=== PATIENT | female | born 1990 | race Caucasian/White ===

== ENCOUNTER 2018-09-01 17:33 | Emergency (ER) | payer OTHER, SELFPAY ==
[2018-09-01 18:04] LABS: #Basophils 0.1 thou/uL (0.0-0.2); #Eosinphils 0.1 thou/uL (0.0-0.7); #Lymphocytes 2.3 thou/uL (1.20-3.40); #Monocytes 0.7 thou/uL (0.11-0.59); #Neutrophils 8.9 thou/uL (1.40-6.50); %Basophils 0.7 % (0.0-1.0); %Lymphocytes 19.4 % (21.0-51.0); %Monocytes 5.7 % (0.0-10.0); %Neutrophils 73.3 % (42.0-75.0); Hemoglobin 13.5 g/dL (12.0-16.0); Mean Corpuscular Hemoglobin 32.1 pg (27.0-31.0); Mean Corpuscular Volume 94.4 fL (78.0-98.0); Mean Platelet Volume 7.4 fL (7.4-10.4); Platelet Count 267 thou/uL (130-400); RBC Distribution Width 11.7 % (11.5-14.5); Red Blood Cell (RBC) Count 4.22 mill/uL (4.20-5.40); White Blood Cell (WBC) Count 12.1 thou/uL (4.8-10.8)
[2018-09-01 18:30] LABS: Bilirubin Negative (Negative); Blood, Urine Negative (Negative); Clarity CLEAR (Clear); Glucose, Urine (Dipstick) Negative (Negative); Leukocyte Negative (Negative); Nitrite Negative (Negative); Protein, Urine (Dipstick) Negative (Neg-Trace); Specific Gravity, Urine 1.021 (1.002-1.036); pH, Urine 6.5 (5.0-9.0)
--- NOTE | 2018-09-01 21:06 | ULT ---
PELVIC ULTRASOUND INCLUDING TRANSABDOMINAL AND VASCULAR DUPLEX WITH COLOR AND SPECTRAL DOPPLER IMAGIN 09/01/18 HISTORY: Right sided pelvic pain for three days. There is a single viable intrauterine fetus. Right and left ovaries are visualized and appear normal. There is vascular flow documented to both ovaries. heart rate 178 beats per minute. No evidenc e for extrachorionic hemorrhage. No abscess or abnormal fluid collection. IMPRESSION: Early viable intrauterine at 9 weeks, 1 day gestation with an JHOAN of 04/05/19. heart r ate 178 beats per minute. Unremarkable ovaries. No evidence of torsion. POS: [facility]
== END 2018-09-01 20:16 | disposition home or self-care (01) ==
LOC: ERS 17:33
DX: O99.89 Other specified diseases and conditions complicating pregnancy, childbirth and the puerperium (principal); R10.9 Unspecified abdominal pain; Z3A.01 Less than 8 weeks gestation of pregnancy
CPT/HCPCS: 36415; 76856; 81003; 84702; 85025; 86900; 86901; 93976

== ENCOUNTER 2019-02-01 17:21 | Day surgery (SDC) | payer OTHER ==
[2019-02-01 18:20] VITALS: BMI 35.6
[2019-02-01 18:21] VITALS: BP 126/73; TEMP 99
[2019-02-01 18:48] LABS: #Basophils 0.1 thou/uL (0.0-0.2); #Eosinphils 0.2 thou/uL (0.0-0.7); #Lymphocytes 2.3 thou/uL (1.20-3.40); #Monocytes 0.7 thou/uL (0.11-0.59); #Neutrophils 11.2 thou/uL (1.40-6.50); %Basophils 0.5 % (0.0-1.0); %Eosinophils 1.1 % (0.0-10.0); %Lymphocytes 15.6 % (21.0-51.0); %Neutrophils 77.8 % (42.0-75.0); Hemoglobin 12.4 g/dL (12.0-16.0); Mean Corpuscular HGB CONC 34.4 g/dL (32.0-36.0); Mean Corpuscular Hemoglobin 32.8 pg (27.0-31.0); Mean Corpuscular Volume 95.3 fL (78.0-98.0); Mean Platelet Volume 7.3 fL (7.4-10.4); Platelet Count 237 thou/uL (130-400); RBC Distribution Width 11.9 % (11.5-14.5); Red Blood Cell (RBC) Count 3.79 mill/uL (4.20-5.40); White Blood Cell (WBC) Count 14.4 thou/uL (4.8-10.8)
[2019-02-01 18:58] LABS: Bilirubin Negative (Negative); Blood, Urine Negative (Negative); Clarity CLOUDY (Clear); Glucose, Urine (Dipstick) Negative (Negative); Leukocyte Negative (Negative); Nitrite Negative (Negative); Protein, Urine (Dipstick) Negative (Neg-Trace); Specific Gravity, Urine 1.021 (1.002-1.036); Urobilinogen 0.2 mg/dL (0.2-1.0)
[2019-02-01 19:07] LABS: ALT (SGPT) 18 U/L (8-55); AST (SGOT) 16 U/L (5-34); Albumin 3.8 g/dL (3.5-5.0); Alkaline Phosphatase 104 U/L (40-150); Anion Gap 14 mmol/L (10-20); BUN (Urea Nitrogen) 8 mg/dL (7.0-18.7); Bilirubin, Total 0.2 mg/dL (0.2-1.2); Calc. Creatinine Clearance 172 mL/min (70-130); Calcium 9.3 mg/dL (7.8-10.44); Carbon Dioxide 22 mmol/L (22-29); Chloride 104 mmol/L (98-107); Estimated GFR-MDRD Greater than 90; Globulin 3.2 g/dL (2.4-3.5); Glucose 92 mg/dL (70-105); Potassium 3.8 mmol/L (3.5-5.1); Sodium 136 mmol/L (136-145)
[2019-02-01 19:20] LABS: FFN Internal QC Analyzer PASS (PASS); FFN Internal QC Cassette PASS (PASS); Fetal Fibronectin Negative (Negative)
[2019-02-01] MEDS ORDERED: Butorphanol Tartrate 1 MG/ML VIAL SLOW IVP PRN (19:34)
[2019-02-01] MEDS ORDERED: Sodium Chloride 0.9% 0 ML ONE (19:42)
--- NOTE | 2019-02-02 08:14 | SS ---
DATE OF ADMISSION: 02/01/2019 DATE OF DISCHARGE: 02/01/2019 REGULAR PHYSICIAN: Lakhwinder Salomon MD. EVALUATING PHYSICIAN: Noe Rollins MD CHIEF COMPLAINT: Headache, cramping. HISTORY OF PRESENT ILLNESS: Ms. Sales is a 28-year-old white G2, P1, with an estimated date of confinement of 04/11/2019, who presents complaining of a 12-hour history of headache along with abdominal cramping. She denies change in bowel or bladder habits, vaginal bleeding, or ruptured membranes. Her care has been with Dr. Salomon without reported complications. PAST OBSTETRICAL HISTORY: One at 38 weeks for what she describes as distress. PAST MEDICAL HISTORY: Anxiety. PAST SURGICAL HISTORY: x1. CURRENT MEDICATIONS: vitamins and Zoloft 50 mg daily. ALLERGIES: PENICILLIN. SHE IS UNCERTAIN AND WAS TOLD A CHILD WHAT THE REACTION WAS. SOCIAL HISTORY: Denies tobacco, alcohol, or drug use. FAMILY HISTORY: Unremarkable. REVIEW OF SYSTEMS: Positive for headache. Denies nausea, vomiting, fever, chills, ruptured membranes, or vaginal bleeding. PHYSICAL EXAMINATION: VITAL SIGNS: Blood pressure in triage is 124/73, pulse 85. She is afebrile. GENERAL: She is lucid, answers questions appropriately. NEURO: Intact across all cranial nerves. ABDOMEN: Soft, nontender, and gravid. PELVIC: Deferred. heart rate tracing is stable. No significant uterine contractions are seen. LABORATORY DATA: White count 14.4, hemoglobin and hematocrit 12.4/36.1, platelet count 237,000. Chemistries; sodium 136, potassium 3.8, creatinine 0.7, glucose 92, total bilirubin 0.2, AST 16, ALT 18. Urinalysis shows a specific gravity 1.021 with negative protein, negative glucose, negative ketones, negative blood, negative nitrites, and negative leukocyte esterase. Her fibronectin returns negative. The patient is given 1 mg of Stadol IV and has marked improvement of her headache. ASSESSMENT: 1. Thirty week intrauterine . 2. No evidence of labor. 3. Suspect migraine headache variant. No evidence of preeclampsia at this time. PLAN: The patient has been dismissed home. The patient states that she can use Tylenol and caffeine for headaches. She states that she has a followup appointment within the week with Dr. Salomon. She was given complete precautions and was sent home. Dr. Salomon was made aware. Job ID: [id number]
== END 2019-02-01 21:30 | disposition home or self-care (01) ==
LOC: L&D/OP 17:21
PROVIDERS: ATTEND Obstetrics & Gynecology
DX: O99.89 Other specified diseases and conditions complicating pregnancy, childbirth and the puerperium (principal); R51 Headache; R10.9 Unspecified abdominal pain; O99.343 Other mental disorders complicating pregnancy, third trimester; F41.9 Anxiety disorder, unspecified; Z3A.30 30 weeks gestation of pregnancy; Z88.0 Allergy status to penicillin; Z79.899 Other long term (current) drug therapy
CPT/HCPCS: 36415; 80053; 81003; 82731; 85025; 96375; 99283; J0595

== ENCOUNTER 2019-04-05 09:57 | Inpatient (IN) | payer OTHER ==
--- NOTE | 2019-04-05 09:00 | PDOC.LDHP ---
Labor and Delivery H&P Chief complaint: scheduled section HPI: 28 y/o presents today at 39 and 1/7 weeks for repeat . Current gestational age (weeks): 39 Due date: 04/11/19 Grav: 2 Para: 1 Current complications: none, other (Dedpression, Anxiety) Abnormal US findings: No Previous surgical history: low tranverse CS Allergies/Adverse Reactions: Allergies Allergy/AdvReac Type Severity Reaction Status Date / Time penicillin G Allergy Verified 02/01/19 18:14 Social history: none - Physical Exam Vital signs reviewed and normal: yes General: NAD, resting Heart: RRR Lungs: CTAB Abdomen: gravid Extremeties: no edema FHT: category 1 - Assessment L&D Assessment: scheduled repeat section - Plan Plan: admit to L&D, to OR for section
[~2019-04-05 09:57] MED LIST: Bicitra 30 ML UDCUP PO SCH; Clindamycin/D5W 900 MG in Premix Bag 1 BAG IVPB SCH; Ondansetron PF 4 MG/2 ML Vial IVP PRN; Promethazine HCl 25 MG/ML VIAL IM PRN; Vancomycin HCl 1 GM in Premix Bag 1 BAG IVPB SCH; hydrALAZINE 20 MG/ML VIAL SLOW IVP PRN
[2019-04-05] MEDS: Lactated Ringer's 1,000 ML IV SCH ×2 (10:49→23:07)
[2019-04-05 11:01] LABS: Hemoglobin 12.7 g/dL (12.0-16.0); Mean Corpuscular Hemoglobin 31.5 pg (27.0-31.0); Mean Corpuscular Volume 92.6 fL (78.0-98.0); Mean Platelet Volume 7.9 fL (7.4-10.4); Platelet Count 214 thou/uL (130-400); RBC Distribution Width 12.7 % (11.5-14.5); Red Blood Cell (RBC) Count 4.03 mill/uL (4.20-5.40); White Blood Cell (WBC) Count 10.7 thou/uL (4.8-10.8)
[2019-04-05 11:09] VITALS: BMI 37.9
[2019-04-05 11:45] LABS: Syphilis Antibody Nonreactive (Nonreactive); Syphilis Antibody Index 0.04 S/CO (<1.00 Non-Reactive)
[2019-04-05 11:46] LABS: HBSAg Index 0.36 S/CO (0-0.99); Hep B Surf Ag Non-Reactive S/CO (NonReactive)
[2019-04-05] MEDS ORDERED: Oxytocin 10 UNITS/ML VIAL ONE ×2 (11:55→13:09)
[2019-04-05] MEDS ORDERED: MORPHINE 5 MG/10 ML PF VIAL ONE (11:57)
[2019-04-05] MEDS ORDERED: HYDROmorphone 2 MG/ML VIAL SLOW IVP PRN (12:09)
[2019-04-05] MEDS ORDERED: L&D-Morphine 4 MG/ML VIAL SLOW IVP PRN (12:09)
[2019-04-05] MEDS ORDERED: Meperidine HCl/PF 25 MG/ML VIAL SLOW IVP PRN (12:09)
[2019-04-05] MEDS ORDERED: Ondansetron HCl/PF 4 MG/2 ML Vial IVP PRN (12:09)
[2019-04-05] MEDS ORDERED: Promethazine HCl 25 MG/ML VIAL IM PRN ×2 (12:10→15:53)
[2019-04-05] MEDS ORDERED: Naloxone HCl 0.4 mg/ml Vial IV PRN (12:10)
[2019-04-05] MEDS ORDERED: Promethazine HCl 25 MG SUPP PR PRN (12:10)
[2019-04-05] MEDS ORDERED: Ondansetron PF 4 MG/2 ML Vial IVP PRN ×2 (12:10→15:53)
[2019-04-05] MEDS ORDERED: Naloxone HCl 0.4 mg/ml Vial IVP PRN ×2 (12:10)
[2019-04-05] MEDS ORDERED: diphenhydrAMINE 50 MG/ML VIAL IVP PRN (12:10)
[2019-04-05] MEDS ORDERED: Communication Order-Pharmacy FS SCH (12:15)
[2019-04-05] MEDS ORDERED: Ketorolac Tromethamine 30 MG/ML VIAL IVP SCH (12:15)
[2019-04-05] MEDS ORDERED: ePHEDrine/0.9% NaCl/PF SYRINGE 50 mg/10 ml ONE (12:37)
[2019-04-05] MEDS ORDERED: Ondansetron PF 4 MG/2 ML Vial ONE (12:55)
[2019-04-05] MEDS ORDERED: Meperidine HCl/PF 25 MG/ML VIAL ONE (14:46)
[2019-04-05] MEDS ORDERED: Promethazine HCl 25 MG/ML VIAL ONE (14:47)
[2019-04-05] MEDS ORDERED: Adacel (T-DAP) 0.5 ML SYRINGE IM ONE (15:53)
[2019-04-05] MEDS ORDERED: Varicella virus, LIVE 0.5 ML VIAL SC ONE (15:53)
[2019-04-05] MEDS ORDERED: diphenhydrAMINE 25 MG CAP PO PRN (15:53)
[2019-04-05] MEDS ORDERED: Lanolin Ointment 7 GM TUBE TOP PRN (15:53)
[2019-04-05] MEDS ORDERED: Methylergonovine 0.2 MG/ML VIAL IM PRN (15:53)
[2019-04-05] MEDS ORDERED: Measles/Mumps/Rubella 10 MCG/0.5 ML VIAL SC ONE (15:53)
[2019-04-05] MEDS ORDERED: NS / Oxytocin 40 units/1000ml 1,000 ML IV SCH (15:53)
[2019-04-05] MEDS ORDERED: Simethicone Chewable 80 MG TAB PO PRN (15:53)
[2019-04-05] MEDS ORDERED: Misoprostol 200 MCG TAB PR PRN (15:53)
[2019-04-05] MEDS ORDERED: hydrALAZINE 20 MG/ML VIAL SLOW IVP PRN (15:53)
[2019-04-05] MEDS ORDERED: Bisacodyl 10 MG SUPP PR PRN (15:53)
[2019-04-05] MEDS: Ketorolac Tromethamine 30 MG/ML VIAL IVP PRN (21:27)
[2019-04-05] MEDS: Docusate Calcium (SURFAK) 240 MG CAP PO SCH (21:31)
[2019-04-06] MEDS ORDERED: HYDROcodone/Acetaminophen 5/325 mg Tablet PO PRN (00:15)
[2019-04-06] MEDS ORDERED: Zolpidem Tartrate 5 MG TAB PO PRN (00:15)
[2019-04-06] MEDS: Ketorolac Tromethamine 30 MG/ML VIAL IVP PRN (03:22)
[2019-04-06 05:15] LABS: Hemoglobin 11.3 g/dL (12.0-16.0); Mean Corpuscular HGB CONC 33.2 g/dL (32.0-36.0); Mean Corpuscular Hemoglobin 31.3 pg (27.0-31.0); Mean Corpuscular Volume 94.3 fL (78.0-98.0); Mean Platelet Volume 7.6 fL (7.4-10.4); Platelet Count 173 thou/uL (130-400); RBC Distribution Width 12.6 % (11.5-14.5); Red Blood Cell (RBC) Count 3.61 mill/uL (4.20-5.40); White Blood Cell (WBC) Count 13.1 thou/uL (4.8-10.8)
[2019-04-06] MEDS: Docusate Calcium (SURFAK) 240 MG CAP PO SCH ×2 (09:13→19:22)
[2019-04-06] MEDS: Prenatal Vitamin 1 TAB PO SCH (09:13)
[2019-04-06] MEDS: HYDROcodone/Acetaminophen 5/325 mg Tablet PO PRN ×2 (09:14→19:22)
[2019-04-06] MEDS: Ibuprofen 800 MG TAB PO SCH (14:08)
[2019-04-07] MEDS: HYDROcodone/Acetaminophen 5/325 mg Tablet PO PRN (02:44)
[2019-04-07] MEDS: Ibuprofen 800 MG TAB PO SCH ×2 (02:47→06:28)
--- NOTE | 2019-04-07 07:33 | PDOC.PP ---
Post Progress Note Post Day #: 2 Subjective: KATIE po, voiding in her own, decreased lochia, pain been an issue with the current pain regimen. PO intake tolerated: yes Ambulation: yes Vital Signs (12 hours) Temp Pulse Resp BP Pulse Ox 04/07/19 00:00 98.4 F 75 16 113/59 L 04/06/19 20:00 94 L Weight Weight 214 lb - Physical Examination General: NAD Respiratory: non-labored breathing Abdominal: no distention, appropriately TTP Fundus firm & at: umbilicua Extremities: negative homans (B) Skin: CS incision dry & intact, no rash Neurological: no gross focal deficits Psychiatric: A&Ox3, normal affect Result Diagrams: 04/06/19 05:03 Additional Labs: Post Labs Blood Type A POSITIVE 04/05/19 10:36 Hep Bs Antigen Non-Reactive S/CO (NonReactive) 04/05/19 10:35 (1) S/P repeat low transverse Code(s): Z98.891 - HISTORY OF UTERINE SCAR FROM PREVIOUS SURGERY Status: Acute - Assessment/Plan pod #2 s/p rltcs. continue in house care. Pt encouraged to ambulate today. no BM yet. Anticipate dc tomorrow
[2019-04-07] MEDS: Prenatal Vitamin 1 TAB PO SCH (08:10)
[2019-04-07] MEDS: Docusate Calcium (SURFAK) 240 MG CAP PO SCH (08:10)
--- NOTE | 2019-04-07 10:58 | OP ---
DATE OF PROCEDURE: 04/05/2019 TIME OF SERVICE: At [address] [place] [address] Time. PREOPERATIVE DIAGNOSIS: Intrauterine at 39 weeks and 1 day with a history of previous section and the patient desires a repeat . POSTOPERATIVE DIAGNOSIS: Intrauterine at 39 weeks and 1 day with a history of previous section and the patient desires a repeat . PROCEDURE: Repeat low transverse section. FINDINGS: Viable male weighing 3951 g or 8 pounds 11 ounces. Apgars 9 and 9. QUANTITATIVE BLOOD LOSS: 445 mL. COMPLICATIONS: None. DETAILS OF THE PROCEDURE: The patient was consented and taken back to the operating room where spinal anesthesia was found to be adequate. She was then prepped and draped in the normal sterile fashion. A timeout was performed by the entire operative team. The incision was then marked with a marking pen tested using sharp pickups. An incision was then made with a scalpel. The incision was carried through the adipose tissue down to the underlying rectus fascia using both sharp dissection as well as cautery. Once the fascia was identified, it was incised in the midline and then the fascial incision was carried through in both lateral directions using sharp as well as cautery dissection techniques. Next, the superior aspect of the rectus fascia was grasped with 2 Bossman clamps, which was tented up and the rectus muscles were dissected off using blunt dissection as well as cautery dissection. Similarly, the inferior aspect of the fascial incision was grasped with 2 Bossman clamps, tented up and the rectus muscles were dissected off bluntly as well as sharply. Next, the rectus muscles were in the midline and the peritoneum identified. The peritoneum was then carefully grasped with 2 hemostats and entered sharply. The peritoneal incision was extended superiorly and inferiorly and bladder blade was placed in the lower abdomen. At this point, the uterus was identified and the bladder flap was then developed using pickups with teeth as well as Metzenbaum scissors in both lateral directions. The bladder flap was then dissected downwards using the purification operator helper's finger as well as Metzenbaum scissors. The bladder blade was replaced. The lower uterine segment was then identified and entered sharply using a clean scalpel. The uterine incision was then dissected downwards until thin layer of muscle remained and this was entered bluntly using a hemostat to avoid any injury to the baby. The uterine incision was then stretched using two fingers in both lateral directions. An amniotomy was performed artificially using a hemostat and the baby was delivered using fundal pressure in a gentle fashion. Once out, the baby's mouth and nose were bulb suctioned, cord clamped and cut, and the baby was handed to waiting attendants. Next, the uterus was exteriorized, cleared of all clots and debris and the uterine incision was repaired with #1 Monocryl in a running locking fashion. A 2nd suture of the same type was used to obtain complete hemostasis at the uterine incision. The bladder flap was reapproximated using 3-0 Monocryl. Next, patient's left and right adnexa were inspected and appeared to be within normal limits. The posterior cul-de-sac was blotted dry and hemostasis assured. One more look at the uterine incision demonstrated hemostasis. Next, the uterus was replaced back within the abdomen. The peritoneum was reapproximated using 2-0 Monocryl without difficulty. The rectus muscles were then allowed to come back together and 0 chromic was used to aid in reapproximation of the muscle as necessary. The rectus fascia was then reapproximated in a running fashion using 0 Vicryl suture. The adipose tissue was then examined and appeared to be well approximated without any obvious separations. Finally, the skin was reapproximated with 3-0 Monocryl on a Marco needle without difficulty and Dermabond adhesive was applied to the skin. Once the glue was dry, the drapes were removed and the patient was transferred to an ambulatory bed where she was taken to recovery awake and in stable condition. Sponge, lap, and needle counts were correct x3. Job ID: [id number]
[2019-04-07 13:05] VITALS: BP 109/69; TEMP 98.7
--- NOTE | 2019-04-07 13:14 | PDOC.EVN ---
Event Note - Event Note Event Note: DISCHARGE NOTE OBGYN Pain Coordinator Location: Admit Date: 04/05/19 Discharge date: 04/07/[address] Salomon. Situation: This patient underwent a CS 2 Days ago. Per the RN, she is requesting to be released as baby is clear for DC to home. Per the RN, Dr Salomon saw her last PM and cleared her for DC today. Dr Salomon has asked us to round this am/pm and do the DC to home order. Procedure: Repeat Section Services consulted: Anesthesia Course: Please see Dr Salomon notes. Vitals reviewed by me 04/07/19 at 1315 and afebrile. Incision with DB. OK for release to follow up with Dr Salomon in 2 weeks
== END 2019-04-07 14:15 | disposition home or self-care (01) | DRG 788 ==
LOC: L&D 09:57 → 3SW 15:48
PROVIDERS: ADMIT Obstetrics & Gynecology; ATTEND Obstetrics & Gynecology
PROC: 10D00Z1 Extraction of Products of Conception, Low, Open Approach (ICD-10-PCS; principal; 2019-04-05)
DX: O34.211 Maternal care for low transverse scar from previous cesarean delivery (principal); O99.344 Other mental disorders complicating childbirth; F32.9 Major depressive disorder, single episode, unspecified; F41.9 Anxiety disorder, unspecified; Z3A.39 39 weeks gestation of pregnancy; Z37.0 Single live birth; Z88.0 Allergy status to penicillin
CPT/HCPCS: 36415; 51702; 85027; 86780; 86850; 86900; 86901; 87340; 90715; J1885; J2175; J2274; J2405; J2550; J2590; J3370; J3490

== ENCOUNTER 2019-04-10 19:23 | Emergency (ER) | payer OTHER ==
[~2019-04-10 19:23] MED LIST changes: -Bicitra 30 ML UDCUP PO SCH; -Clindamycin/D5W 900 MG in Premix Bag 1 BAG IVPB SCH; +ISOVUE-370 76%-LOCM 1 ML ONE; -Ondansetron PF 4 MG/2 ML Vial IVP PRN; -Promethazine HCl 25 MG/ML VIAL IM PRN; -Vancomycin HCl 1 GM in Premix Bag 1 BAG IVPB SCH; -hydrALAZINE 20 MG/ML VIAL SLOW IVP PRN
[2019-04-10] MEDS ORDERED: Fentanyl 100 MCG/2 ML VIAL ONE (20:09)
[2019-04-10] MEDS ORDERED: Ondansetron PF 4 MG/2 ML Vial ONE (20:09)
--- NOTE | 2019-04-10 20:29 | CT ---
CT OF THE ABDOMEN AND PELVIS WITH IV CONTRAST: 04/10/19 INDICATION: Abdominal pain status post with bleeding. FINDINGS: Lung bases are clear. The gallbladder is moderately distended with layered gallbladder sludge. The pancreas and adrenal gla nds are normal appearing. The spleen is normal appearing. Kidneys are normal appearing. There is a post gravid uterus. There is heterogeneous material seen within the endometrial canal. The re is suspicion for extravasation of contrast within the right superolateral aspect of the uterine fu ndus into the endometrial canal which may reflect retained products of conception. The bladder, rectum, perirectal soft tissues are unremarkable appearing. There is reticulation seen involving the lower anterior abdominal wall likely related to the patient' s Pfannenstiel incision. No acute osseous abnormality is evident. IMPRESSION: 1. Findings suspicious for active extravasation of contrast within the endometrial canal within the right superolateral fundus. Recommend pelvic ultrasound for evaluation for retained products of c onception. 2. Moderate distention of the gallbladder with gallbladder sludge. 3. Mild amount of retained stool within the colon. POS: [facility]
[2019-04-10 20:33] LABS: #Eosinphils 0.2 thou/uL (0.0-0.7); #Monocytes 0.5 thou/uL (0.11-0.59); %Basophils 0.6 % (0.0-1.0); %Eosinophils 3.2 % (0.0-10.0); %Lymphocytes 25.4 % (21.0-51.0); %Monocytes 6.2 % (0.0-10.0); %Neutrophils 64.5 % (42.0-75.0); Hemoglobin 11.6 g/dL (12.0-16.0); Mean Corpuscular HGB CONC 34.5 g/dL (32.0-36.0); Mean Corpuscular Hemoglobin 32.6 pg (27.0-31.0); Mean Corpuscular Volume 94.3 fL (78.0-98.0); Platelet Count 291 thou/uL (130-400); RBC Distribution Width 12.2 % (11.5-14.5); Red Blood Cell (RBC) Count 3.57 mill/uL (4.20-5.40); White Blood Cell (WBC) Count 7.7 thou/uL (4.8-10.8)
[2019-04-10 20:56] LABS: ALT (SGPT) 18 U/L (8-55); AST (SGOT) 14 U/L (5-34); Albumin 3.4 g/dL (3.5-5.0); Alkaline Phosphatase 115 U/L (40-150); Anion Gap 12 mmol/L (10-20); BUN (Urea Nitrogen) 13 mg/dL (7.0-18.7); Bilirubin, Total 0.2 mg/dL (0.2-1.2); Calc. Creatinine Clearance 0 mL/min (70-130); Carbon Dioxide 22 mmol/L (22-29); Chloride 106 mmol/L (98-107); Estimated GFR-MDRD Greater than 90; Globulin 2.7 g/dL (2.4-3.5); Glucose 79 mg/dL (70-105); Lipase 15 U/L (8-78); Potassium 3.9 mmol/L (3.5-5.1); Protein, Total 6.1 g/dL (6.0-8.3); Sodium 136 mmol/L (136-145)
--- NOTE | 2019-04-11 04:33 | CON ---
DATE OF CONSULTATION: 04/10/2019 CONSULTING PHYSICIAN: Dr. Meehan, Emergency Department. CHIEF COMPLAINT: Bleeding incision. HISTORY OF PRESENT ILLNESS: A 28-year-old, G2, P2, on postop day 4 after scheduled repeat low-transverse , which was uncomplicated. Her blood loss at the time of surgery was around 445 mL. The patient came into the emergency department today with bleeding from her incision that she considered significant as well as some pain surrounding the incision. She denies any heavy vaginal bleeding, fevers, chills, or other concerns. REVIEW OF SYSTEMS: Negative for head, eyes, ears, nose, throat, cardiovascular, respiratory, GI, , neuro-psych, musculoskeletal, skin, or constitutional symptoms other than mentioned above. PAST MEDICAL HISTORY: None. PAST SURGICAL HISTORY: x2. ALLERGIES: PENICILLIN. SOCIAL HISTORY: Negative for alcohol, tobacco, or drug abuse. PHYSICAL EXAMINATION: VITAL SIGNS: Afebrile with normal vital signs. GENERAL: Awake, alert, no acute distress. CHEST: Nonlabored. ABDOMEN: Soft, appropriately tender to palpation. Incision appears well approximated except for a 1 cm defect in the midline as well as another 0.5 cm to the left of midline. These areas were probed with a sterile Q-tip, and the fascia was found to be intact. A pocket of fluid was probed and drained. Moderate amount of serosanguineous fluid. There is no evidence of infection at this time. LABORATORY DATA: WBC 7.7, hemoglobin 11.6, hematocrit 33.7, and platelets 291, 000. Chemistry unremarkable. IMAGING DATA: CT scan showed moderate distention of the gallbladder with gallbladder sludge, retained stool within the colon, and extravasation of contrast within the endometrial canal. ASSESSMENT AND PLAN: A 28-year-old, G2, P2, status post repeat low-transverse section, which is uncomplicated. Her incision appears to be without infection, but does appear to have a 3cm seroma, which was probed and is draining. Findings on CT scan within the uterine canal appeared to be consistent with state. I discussed these findings with Dr. Salomon, who will see her back in clinic tomorrow or . The patient was given a prescription for clindamycin. Job ID: [id number] MTDD
== END 2019-04-10 21:24 | disposition home or self-care (01) ==
LOC: ERS 19:23
DX: O99.89 Other specified diseases and conditions complicating pregnancy, childbirth and the puerperium (principal); G89.18 Other acute postprocedural pain
CPT/HCPCS: 36415; 74177; 80053; 83690; 85025; 96361; 96374; 96375; J2405; J3010; Q9966

== ENCOUNTER 2020-02-11 17:00 | Emergency (ER) | payer BC, OTHER | END 2020-02-11 17:40 | disposition left against medical advice (07) | LOC: ERS 17:00 | DX: Z53.21 Procedure and treatment not carried out due to patient leaving prior to being seen by health care provider (principal) | CPT/HCPCS: 87635; U0003 ==

== ENCOUNTER 2020-09-13 13:16 | Emergency (ER) | payer BC ==
[2020-09-13 18:59] LABS: SARS-CoV-2 PCR by NAA Not Detected (NotDetected)
== END 2020-09-13 13:45 | disposition home or self-care (01) ==
LOC: ERS 13:16
DX: Z20.822 Contact with and (suspected) exposure to COVID-19 (principal)
CPT/HCPCS: 87635; 99283; U0003; U0005

== ENCOUNTER 2020-12-06 17:08 | Emergency (ER) | payer BC ==
[2020-12-06 17:44] LABS: #Basophils 0.1 thou/uL (0.0-0.2); #Eosinphils 0.1 thou/uL (0.0-0.7); #Lymphocytes 2.9 thou/uL (1.20-3.40); #Monocytes 0.6 thou/uL (0.11-0.59); %Basophils 0.8 % (0.0-1.0); %Lymphocytes 30.2 % (21.0-51.0); %Monocytes 5.7 % (0.0-10.0); %Neutrophils 62.4 % (42.0-75.0); Hemoglobin 12.9 g/dL (12.0-16.0); Mean Corpuscular HGB CONC 32.9 g/dL (32.0-36.0); Mean Corpuscular Hemoglobin 31.4 pg (27.0-31.0); Mean Corpuscular Volume 95.2 fL (78.0-98.0); Mean Platelet Volume 7.3 fL (7.4-10.4); Platelet Count 272 thou/uL (130-400); RBC Distribution Width 12.4 % (11.5-14.5); Red Blood Cell (RBC) Count 4.12 mill/uL (4.20-5.40); White Blood Cell (WBC) Count 9.7 thou/uL (4.8-10.8)
[2020-12-06 17:57] LABS: Bilirubin Negative (Negative); Blood, Urine Negative (Negative); Clarity Clear (Clear); Glucose, Urine (Dipstick) Normal (Negative); Ketone, Urine Negative (Negative); Leukocyte Negative Leu/uL (Negative); Nitrite Negative (Negative); Protein, Urine (Dipstick) Negative (Neg-Trace); Specific Gravity, Urine 1.031 (1.002-1.036); Urobilinogen Normal mg/dL (Less than 2)
[2020-12-06 18:07] LABS: ALT (SGPT) 9 U/L (8-55); AST (SGOT) 14 U/L (5-34); Albumin 4.1 g/dL (3.5-5.0); Alkaline Phosphatase 55 U/L (40-110); Anion Gap 12 mmol/L (10-20); BUN (Urea Nitrogen) 18 mg/dL (7.0-18.7); Bilirubin, Total 0.2 mg/dL (0.2-1.2); Calc. Creatinine Clearance 0 mL/min (70-130); Calcium 8.8 mg/dL (7.8-10.44); Carbon Dioxide 23 mmol/L (22-29); Chloride 108 mmol/L (98-107); Globulin 2.7 g/dL (2.4-3.5); Glucose 96 mg/dL (70-105); Lipase 22 U/L (8-78); Protein, Total 6.8 g/dL (6.0-8.3); Sodium 139 mmol/L (136-145)
[2020-12-06 18:15] LABS: BHCG - Serum Negative (NEGATIVE); Pregs Control Background? CLEAR/WHITE (CLR/WHITE); Pregs Control Bar Appear? YES (CONTROL BAR)
== END 2020-12-06 18:52 | disposition home or self-care (01) ==
LOC: ERS 17:08
DX: K80.80 Other cholelithiasis without obstruction (principal)
CPT/HCPCS: 36415; 76705; 80053; 81003; 83690; 84703; 85025

== ENCOUNTER 2020-12-31 10:15 | Day surgery (SDC) | payer BC ==
[2020-12-31] MEDS ORDERED: SUGAMMADEX SODIUM 200 MG/2 ML VIAL ONE (10:57)
[2020-12-31] MEDS ORDERED: Famotidine/PF 20 mg/2ml Vial ONE (10:57)
[2020-12-31] MEDS ORDERED: Fentanyl 100 MCG/2 ML VIAL ONE ×2 (10:57→13:21)
[2020-12-31 11:32] LABS: #Basophils 0.1 thou/uL (0.0-0.2); #Eosinphils 0.1 thou/uL (0.0-0.7); #Lymphocytes 2.2 thou/uL (1.20-3.40); #Monocytes 0.5 thou/uL (0.11-0.59); #Neutrophils 3.9 thou/uL (1.40-6.50); %Basophils 0.9 % (0.0-1.0); %Eosinophils 1.9 % (0.0-10.0); %Monocytes 6.7 % (0.0-10.0); %Neutrophils 57.5 % (42.0-75.0); Hemoglobin 14.1 g/dL (12.0-16.0); Mean Corpuscular HGB CONC 31.7 g/dL (32.0-36.0); Mean Corpuscular Hemoglobin 30.6 pg (27.0-31.0); Mean Corpuscular Volume 96.4 fL (78.0-98.0); Mean Platelet Volume 7.5 fL (7.4-10.4); Platelet Count 281 thou/uL (130-400); RBC Distribution Width 12.2 % (11.5-14.5); White Blood Cell (WBC) Count 6.8 thou/uL (4.8-10.8)
[2020-12-31] MEDS ORDERED: Scopolamine 1.5 mg/72 hour Patch ONE (11:32)
[2020-12-31 11:44] LABS: ALT (SGPT) 15 U/L (8-55); AST (SGOT) 13 U/L (5-34); Albumin 4.1 g/dL (3.5-5.0); Alkaline Phosphatase 55 U/L (40-110); Anion Gap 10 mmol/L (10-20); BUN (Urea Nitrogen) 10 mg/dL (7.0-18.7); Bilirubin, Direct 0.2 mg/dL (0.1-0.3); Bilirubin, Total 0.3 mg/dL (0.2-1.2); Calc. Creatinine Clearance 0 mL/min (70-130); Carbon Dioxide 25 mmol/L (22-29); Chloride 107 mmol/L (98-107); Glucose 92 mg/dL (70-105); Potassium 4.4 mmol/L (3.5-5.1); Protein, Total 6.8 g/dL (6.0-8.3); Sodium 138 mmol/L (136-145)
[2020-12-31] MEDS ORDERED: Bupivacaine 0.25% HCL 30 ML VIAL ONE (11:48)
[2020-12-31] MEDS ORDERED: Lidocaine 1% w/Epinephrine 1:100K 20 ML VIAL ONE (11:48)
[2020-12-31] MEDS ORDERED: Levofloxacin 500 mg/D5W 100 ml Premix Bag ONE (12:01)
[2020-12-31] MEDS ORDERED: Midazolam HCl 2 mg/2 ml Vial ONE (12:04)
[2020-12-31] MEDS ORDERED: Ketorolac Tromethamine 30 MG/ML VIAL ONE (12:23)
[2020-12-31] MEDS ORDERED: Ondansetron PF 4 MG/2 ML Vial ONE (12:23)
[2020-12-31] MEDS ORDERED: PROPOFOL 200 MG/20 ML VIAL ONE (12:23)
[2020-12-31] MEDS ORDERED: Dexamethasone 20 MG/5 ML VIAL ONE (12:23)
[2020-12-31] MEDS ORDERED: Rocuronium Bromide 10 MG/ML (10ML VIAL) ONE (12:23)
[2020-12-31] MEDS ORDERED: Lidocaine 1% PF 5 ML VIAL ONE (12:23)
[2020-12-31] MEDS ORDERED: Promethazine HCl 25 MG/ML VIAL ONE (13:22)
[2020-12-31] MEDS ORDERED: HYDROcodone/Acetaminophen 5/325 mg Tablet ONE (14:55)
== END 2020-12-31 15:20 | disposition home or self-care (01) ==
LOC: SDC 10:15
PROVIDERS: ATTEND Surgery
PROC: 0FT44ZZ Resection of Gallbladder, Percutaneous Endoscopic Approach (ICD-10-PCS; principal; 2020-12-31)
DX: K80.10 Calculus of gallbladder with chronic cholecystitis without obstruction (principal); Z79.899 Other long term (current) drug therapy; Z88.0 Allergy status to penicillin
CPT/HCPCS: 80048; 80076; 85025; 88304; J1100; J1885; J1956; J2250; J2405; J2550; J2704; J3010; S0020; S0028

== ENCOUNTER 2021-05-18 17:19 | Emergency (ER) | payer OTHER, BC ==
[2021-05-18 17:56] LABS: #Basophils 0.1 thou/uL (0.0-0.2); #Eosinphils 0.2 thou/uL (0.0-0.7); #Lymphocytes 2.3 thou/uL (1.20-3.40); #Monocytes 0.7 thou/uL (0.11-0.59); #Neutrophils 9.6 thou/uL (1.40-6.50); %Basophils 0.4 % (0.0-1.0); %Eosinophils 1.2 % (0.0-10.0); %Lymphocytes 18.1 % (21.0-51.0); %Monocytes 5.6 % (0.0-10.0); %Neutrophils 74.6 % (42.0-75.0); Hemoglobin 12.5 g/dL (12.0-16.0); Mean Corpuscular HGB CONC 32.2 g/dL (32.0-36.0); Mean Corpuscular Hemoglobin 31.3 pg (27.0-31.0); Mean Corpuscular Volume 97.3 fL (78.0-98.0); Mean Platelet Volume 7.7 fL (7.4-10.4); Platelet Count 234 thou/uL (130-400); RBC Distribution Width 12.4 % (11.5-14.5); Red Blood Cell (RBC) Count 3.98 mill/uL (4.20-5.40); White Blood Cell (WBC) Count 12.8 thou/uL (4.8-10.8)
[2021-05-18 18:13] LABS: ALT (SGPT) 10 U/L (8-55); AST (SGOT) 12 U/L (5-34); Albumin 3.6 g/dL (3.5-5.0); Alkaline Phosphatase 64 U/L (40-110); Anion Gap 11 mmol/L (10-20); BUN (Urea Nitrogen) 10 mg/dL (7.0-18.7); Bilirubin, Total 0.2 mg/dL (0.2-1.2); Calc. Creatinine Clearance 0 mL/min (70-130); Carbon Dioxide 22 mmol/L (22-29); Chloride 105 mmol/L (98-107); Glucose 81 mg/dL (70-105); Protein, Total 6.6 g/dL (6.0-8.3); Sodium 134 mmol/L (136-145)
[2021-05-18] MEDS ORDERED: Acetaminophen 500 MG TAB ONE (18:35)
== END 2021-05-18 19:09 | disposition short-term general hospital (02) ==
LOC: ERS 17:19
DX: O99.891 Other specified diseases and conditions complicating pregnancy (principal); R10.30 Lower abdominal pain, unspecified; Z3A.23 23 weeks gestation of pregnancy
CPT/HCPCS: 36415; 80053; 85025; 94760